=== PATIENT | female | born 1945 | race Hispanic/Latino ===

== ENCOUNTER 2017-08-07 12:30 | Inpatient (IN) | payer OTHER, MEDICARE ==
[~2017-08-07] VITALS: Ht 162.6 cm; Wt 58.2 kg
[2017-08-07 13:05] LABS: BASOPHILS % (AUTO) 0.3 % (0.0-5.0); EOSINOPHILS % (AUTO) 1.1 % (0.0-8.0); HEMATOCRIT 35.4 % (36-48); MEAN CORPUSCULAR HEMOGLOBIN 30.6 pg (27.0-33.0); MEAN CORPUSCULAR HGB CONC 34.1 g/dL (32.0-36.0); MEAN CORPUSCULAR VOLUME 89.5 fL (79-99); MONOCYTES % (AUTO) 5.4 % (3.0-13.0); NEUTROPHILS % (AUTO) 84.2 % (40.0-77.0); PLATELET COUNT (AUTO) 232 K/uL (130-400); RED BLOOD CELL COUNT(AUTO) 3.96 MIL/uL (4.00-5.50); RED CELL DISTRIBUTION WIDTH 12.7 % (11.0-15.5); WHITE BLOOD COUNT (AUTO) 7.1 K/uL (4.8-10.8)
[2017-08-07 13:15] LABS: CREATININE 0.6 mg/dL (0.5-1.5); POTASSIUM 3.4 mmol/L (3.5-5.1)
[2017-08-07 13:30] LABS: INR 0.97 (0.85-1.15); PARTIAL THROMBOPLASTIN TIME 32.6 SEC (26.3-35.5); PROTHROMBIN TIME 10.2 SEC (9.6-11.6)
[2017-08-07 13:33] LABS: ALBUMIN 3.6 g/dL (3.5-5.0); BILIRUBIN,DIRECT 0.2 mg/dL (0.0-0.3); BILIRUBIN,TOTAL 0.8 mg/dL (0.2-1.0); TOTAL PROTEIN, SERUM 7.3 g/dL (6.0-8.3)
[2017-08-07 13:44] LABS: B-TYPE NATRIURETIC PEPTIDE 51 pg/mL (0-100)
[2017-08-07] MEDS ORDERED: DEXAMETHASONE SOD PHOSPHATE 10MG/ML 1ML VIAL ONE (16:02)
[2017-08-07] MEDS ORDERED: CEFTRIAXONE SODIUM 2 GM VIAL ONE (16:02)
[2017-08-07] MEDS ORDERED: SODIUM CHLORIDE 0.9% 1000ML 1,000 ML IV ONE (16:02)
[2017-08-07] MEDS ORDERED: IPRATROPIUM/ALBUTEROL SULFATE 3 ML SOLUTION IH ONE (16:21)
[2017-08-07] MEDS ORDERED: IOPAMIDOL-370 100 ML VIAL IV ONE (17:00)
[2017-08-07] MEDS ORDERED: VANCOMYCIN 1GM+NS 250ML 250 ML IV ONE (18:09)
[2017-08-07] MEDS ORDERED: GUAIFENESIN-DM 200/20 MG 10 ML PO PRN (18:30)
[2017-08-07] MEDS ORDERED: LACTULOSE 20 GM/30 ML UDCUP PO PRN (18:30)
[2017-08-07] MEDS ORDERED: MEROPENEM 500MG+NS 50ML 50 ML IV SCH (18:30)
[2017-08-07] MEDS ORDERED: VANCOMYCIN PROTOCOL PER PHARMACY IV PRN (18:30)
[2017-08-07] MEDS ORDERED: MAG HYDROX/AL HYDROX/SIMETH ES 30 ML SUSP UDCUP PO PRN (18:30)
[2017-08-07] MEDS ORDERED: ACETAMINOPHEN 325 MG TAB PO PRN ×2 (18:30)
[2017-08-07] MEDS ORDERED: ONDANSETRON HCL 4 MG/2 ML VIAL IV PRN (18:30)
[2017-08-07] MEDS ORDERED: MEROPENEM 500 MG VIAL ONE (18:48)
[2017-08-07] MEDS ORDERED: MORPHINE SULFATE 2 MG/ML 1ML SYG IVP PRN ×2 (21:15)
[2017-08-07] MEDS ORDERED: POTASSIUM CHLORIDE 10% ELIXIR 20 MEQ/15 ML UDCUP PO PRN (21:15)
[2017-08-07] MEDS ORDERED: LIDOCAINE HCL-MPF 1% 2ML VIAL IVP PRN (21:15)
[2017-08-07] MEDS ORDERED: POTASSIUM CHLORIDE 20MEQ/100ML 100 ML IV PRN (21:15)
[2017-08-07] MEDS ORDERED: CLONIDINE HCL 0.1 MG TABLET PO PRN (21:15)
[2017-08-07] MEDS ORDERED: POTASSIUM CHLORIDE 20 MEQ ERTAB PO PRN (21:15)
[2017-08-07] MEDS ORDERED: HYDRALAZINE HCL 20 MG/ML VIAL IV PRN (21:15)
[2017-08-07] MEDS ORDERED: FAMOTIDINE/PF 20 MG/2 ML VIAL IV ONE (21:28)
[2017-08-07] MEDS ORDERED: POTASSIUM CHLORIDE 20 MEQ ERTAB PO ONE (23:19)
[2017-08-08] VITALS: BP 130/67
[2017-08-08] MEDS ORDERED: MEROPENEM 500 MG VIAL ONE (03:30)
[2017-08-08 03:43] LABS: HEMATOCRIT 32.8 % (36-48); LYMPHOCYTES % (AUTO) 12.1 % (21.0-51.0); MEAN CORPUSCULAR HEMOGLOBIN 30.3 pg (27.0-33.0); MEAN CORPUSCULAR VOLUME 89.2 fL (79-99); MONOCYTES % (AUTO) 1.9 % (3.0-13.0); PLATELET COUNT (AUTO) 212 K/uL (130-400); RED BLOOD CELL COUNT(AUTO) 3.68 MIL/uL (4.00-5.50); WHITE BLOOD COUNT (AUTO) 4.2 K/uL (4.8-10.8)
[2017-08-08 04:00] VITALS: BP 131/72
[2017-08-08 04:07] LABS: CARBON DIOXIDE 29 mmol/L (21-32); CHLORIDE 104 mmol/L (101-111); CREATINE KINASE MB < 0.5 ng/mL (0.5-3.6); CREATINE KINASE, TOTAL 60 U/L (21-232); CREATININE 0.7 mg/dL (0.5-1.5); GLOMERULAR FILTR. RATE CALC 88 mL/min (>60); GLUCOSE,RANDOM 185 mg/dL (70-105); MYOGLOBIN 26 ng/mL (10-92); SODIUM SERUM 138 mmol/L (136-145); TROPONIN I < 0.04 ng/mL (0.00-0.06); UREA NITROGEN, BLOOD 14 mg/dL (7-18)
[2017-08-08] MEDS: IPRATROPIUM/ALBUTEROL SULFATE 3 ML SOLUTION IH SCH ×4 (06:00→23:24)
[2017-08-08] MEDS ORDERED: IPRATROPIUM/ALBUTEROL SULFATE 3 ML SOLUTION IH ONE (06:42)
[2017-08-08 08:00] VITALS: BP 124/71
[2017-08-08 11:58] VITALS: BP 119/62
[2017-08-08] MEDS ORDERED: COMPOUND IV REFRIGERATED 1 EACH IVSOLN MISC PRN (12:15)
[2017-08-08] MEDS: VANCOMYCIN 0.75 GM in N.S. 250 ML IV SCH (12:38)
[2017-08-08] MEDS: MEROPENEM 500 MG VIAL IVP SCH ×2 (12:38→20:35)
[2017-08-08] MEDS: ASPIRIN 325MG EC TAB 325 MG TABLET.DR PO SCH (12:39)
[2017-08-08 16:00] VITALS: BP 128/59
[2017-08-08 20:00] VITALS: BP 127/65
[2017-08-08] MEDS: FAMOTIDINE/PF 20 MG/2 ML VIAL IV SCH (20:36)
[2017-08-09] VITALS: BP 110/53
[2017-08-09] MEDS: VANCOMYCIN 0.75 GM in N.S. 250 ML IV SCH (00:35)
[2017-08-09 04:00] VITALS: BP 128/72
[2017-08-09] MEDS: MEROPENEM 500 MG VIAL IVP SCH ×4 (04:57→21:46)
[2017-08-09 06:09] LABS: HEMATOCRIT 32.6 % (36-48); MEAN CORPUSCULAR HEMOGLOBIN 31.2 pg (27.0-33.0); MEAN CORPUSCULAR HGB CONC 34.7 g/dL (32.0-36.0); MEAN CORPUSCULAR VOLUME 89.7 fL (79-99); PLATELET COUNT (AUTO) 260 K/uL (130-400); RED BLOOD CELL COUNT(AUTO) 3.63 MIL/uL (4.00-5.50); RED CELL DISTRIBUTION WIDTH 13.2 % (11.0-15.5); WHITE BLOOD COUNT (AUTO) 6.3 K/uL (4.8-10.8)
[2017-08-09 06:19] LABS: CREATININE 0.7 mg/dL (0.5-1.5); POTASSIUM 3.5 mmol/L (3.5-5.1)
[2017-08-09] MEDS: IPRATROPIUM/ALBUTEROL SULFATE 3 ML SOLUTION IH SCH ×4 (06:27→23:37)
[2017-08-09 07:08] LABS: BASOPHILS % (MANUAL) 1 % (0-2); EOSINOPHILS % (MANUAL) 1 % (1-6); LYMPHOCYTES % (MANUAL) 22 % (22-44); MAN.DIFF COMMENT-IMPRESSION MANUAL DIFFERENTIAL; MONOCYTES % (MANUAL) 4 % (2-9); PLATELET MORPHOLOGY COMMENT ADEQUATE; SEGMENTED NEUTROPHILS % 72 % (40-70)
[2017-08-09 08:00] VITALS: BP 126/77
[2017-08-09] MEDS: ASPIRIN 325MG EC TAB 325 MG TABLET.DR PO SCH (08:59)
[2017-08-09] MEDS: FAMOTIDINE/PF 20 MG/2 ML VIAL IV SCH ×2 (08:59→21:46)
[2017-08-09] MEDS ORDERED: MAGNESIUM 2GM PREMIX 50ML 50 ML IV SCH (10:00)
[2017-08-09] MEDS ORDERED: VANCOMYCIN 1.5 GM in SODIUM CHLORIDE 0.9% 250 ML IV SCH (11:57)
[2017-08-09 12:00] VITALS: BP 121/65
[2017-08-09 16:00] VITALS: BP 123/67
[2017-08-09 20:00] VITALS: BP 107/60
[2017-08-09] MEDS: VANCOMYCIN 500MG+NS 100ML 100 ML IV SCH (21:47)
[2017-08-10] VITALS: BP 104/60
[2017-08-10 04:00] VITALS: BP 114/70
[2017-08-10] MEDS: MEROPENEM 500 MG VIAL IVP SCH ×3 (05:55→21:24)
[2017-08-10] MEDS: VANCOMYCIN 500MG+NS 100ML 100 ML IV SCH (05:56)
[2017-08-10 06:27] LABS: BASOPHILS % (AUTO) 0.8 % (0.0-5.0); EOSINOPHILS % (AUTO) 2.8 % (0.0-8.0); HEMATOCRIT 35.3 % (36-48); LYMPHOCYTES % (AUTO) 20.6 % (21.0-51.0); MEAN CORPUSCULAR HEMOGLOBIN 30.3 pg (27.0-33.0); MEAN CORPUSCULAR HGB CONC 33.8 g/dL (32.0-36.0); MEAN CORPUSCULAR VOLUME 89.8 fL (79-99); MONOCYTES % (AUTO) 7.3 % (3.0-13.0); NEUTROPHILS % (AUTO) 68.5 % (40.0-77.0); PLATELET COUNT (AUTO) 274 K/uL (130-400); RED BLOOD CELL COUNT(AUTO) 3.93 MIL/uL (4.00-5.50); RED CELL DISTRIBUTION WIDTH 13.2 % (11.0-15.5); WHITE BLOOD COUNT (AUTO) 5.4 K/uL (4.8-10.8)
[2017-08-10] MEDS: IPRATROPIUM/ALBUTEROL SULFATE 3 ML SOLUTION IH SCH ×4 (06:31→23:14)
[2017-08-10 06:36] LABS: CREATININE 0.7 mg/dL (0.5-1.5); MAGNESIUM 2.3 mg/dL (1.80-2.40); POTASSIUM 4.6 mmol/L (3.5-5.1)
[2017-08-10 08:10] VITALS: BP 129/70
[2017-08-10 11:30] VITALS: BP 132/67
[2017-08-10] MEDS: ASPIRIN 325MG EC TAB 325 MG TABLET.DR PO SCH (11:48)
[2017-08-10] MEDS: FAMOTIDINE/PF 20 MG/2 ML VIAL IV SCH ×2 (11:48→21:24)
[2017-08-10] MEDS: ENOXAPARIN SODIUM 40 MG/0.4 ML SYRINGE SQ SCH (11:50)
[2017-08-10] MEDS ORDERED: COMPOUND IV REFRIGERATED 1 EACH IVSOLN MISC PRN (15:30)
[2017-08-10 16:00] VITALS: BP 112/66
[2017-08-10 19:54] VITALS: BP 106/60
[2017-08-10] MEDS: VANCOMYCIN 750MG + NS 250 ML IV SCH ×2 (21:24)
[2017-08-11 00:50] VITALS: BP 111/58
[2017-08-11 04:13] VITALS: BP 107/64
[2017-08-11] MEDS: VANCOMYCIN 750MG + NS 250 ML IV SCH ×2 (06:11)
[2017-08-11] MEDS: MEROPENEM 500 MG VIAL IVP SCH (06:11)
[2017-08-11] MEDS: IPRATROPIUM/ALBUTEROL SULFATE 3 ML SOLUTION IH SCH ×2 (06:26→12:37)
[2017-08-11 08:10] VITALS: BP 127/74
[2017-08-11] MEDS: ASPIRIN 325MG EC TAB 325 MG TABLET.DR PO SCH (10:06)
[2017-08-11] MEDS: FAMOTIDINE/PF 20 MG/2 ML VIAL IV SCH (10:06)
[2017-08-11] MEDS: ENOXAPARIN SODIUM 40 MG/0.4 ML SYRINGE SQ SCH (10:07)
[2017-08-11 12:51] VITALS: BP 120/64
== END 2017-08-11 12:55 | disposition home or self-care (01) | DRG 194 ==
LOC: EDH 12:30 → EDHIP 18:17 → 3AH 22:13
PROVIDERS: ADMIT Family Medicine; ATTEND Family Medicine
DX: J18.9 Pneumonia, unspecified organism (principal); R78.81 Bacteremia; B96.89 Other specified bacterial agents as the cause of diseases classified elsewhere; J84.10 Pulmonary fibrosis, unspecified; J98.11 Atelectasis; I10 Essential (primary) hypertension; Z77.22 Contact with and (suspected) exposure to environmental tobacco smoke (acute) (chronic); Z78.9 Other specified health status; Z87.01 Personal history of pneumonia (recurrent)
CPT/HCPCS: 36415; 71045; 71046; 71275; 80048; 80076; 80202; 82550; 82553; 83605; 83735; 83874; 83880; 84484; 84702; 85025; 85610; 85730; 87040; 87071; 87116; 87186; 87205; 87206; 87804; 93005; 94640; 94664; A4218; J0696; J1100; J1650; J2185; J3370; J3475; J3490; J7030; Q9967

== ENCOUNTER → 2018-10-27 | Outpatient (CLI) | payer OTHER, MEDICARE | END | disposition home or self-care (01) | LOC: RAH 13:07 | PROVIDERS: ATTEND Family Medicine | DX: J47.9 Bronchiectasis, uncomplicated (principal); A31.0 Pulmonary mycobacterial infection | CPT/HCPCS: 71250 ==

== ENCOUNTER 2019-02-07 21:53 | Emergency (ER) | payer OTHER, MEDICARE ==
[~2019-02-07 21:53] MED LIST: CLAR500T PO; ETHA400T8 PO; RIFA300C4 PO
[2019-02-07 22:39] LABS: BASOPHILS % (AUTO) 0.7 % (0.0-5.0); EOSINOPHILS % (AUTO) 2.6 % (0.0-8.0); HEMATOCRIT 36.3 % (36-48); LYMPHOCYTES % (AUTO) 25.1 % (21.0-51.0); MEAN CORPUSCULAR HEMOGLOBIN 30.5 pg (27.0-33.0); MEAN CORPUSCULAR HGB CONC 33.6 g/dL (32.0-36.0); MEAN CORPUSCULAR VOLUME 90.9 fL (79-99); MONOCYTES % (AUTO) 8.3 % (3.0-13.0); NEUTROPHILS % (AUTO) 63.3 % (40.0-77.0); NUCLEATED RED BLOOD CELLS 0.1 % (0.0-0.19); PLATELET COUNT (AUTO) 222 K/uL (130-400); RED BLOOD CELL COUNT(AUTO) 3.99 MIL/uL (4.00-5.50); RED CELL DISTRIBUTION WIDTH 13.4 % (11.0-15.5); WHITE BLOOD COUNT (AUTO) 4.8 K/uL (4.8-10.8)
[2019-02-07 22:53] LABS: CREATININE 0.6 mg/dL (0.5-1.5); POTASSIUM 3.9 mmol/L (3.5-5.1)
[2019-02-07 22:57] LABS: ALBUMIN 3.8 g/dL (3.5-5.0); BILIRUBIN,DIRECT 0.1 mg/dL (0.0-0.3); BILIRUBIN,TOTAL 0.2 mg/dL (0.2-1.0); TOTAL PROTEIN, SERUM 8.2 g/dL (6.0-8.3)
== END 2019-02-08 00:46 | disposition home or self-care (01) ==
LOC: EDH 21:53
DX: R09.1 Pleurisy (principal); R05 Cough
CPT/HCPCS: 36415; 71046; 80048; 80076; 82550; 84484; 85025; 87804; 93005

== ENCOUNTER 2019-11-20 17:14 | Emergency (ER) | payer OTHER, MEDICARE ==
[~2019-11-20 17:14] MED LIST changes: +CLAR-44 PO; -CLAR500T PO
[2019-11-20 17:55] LABS: BASOPHILS % (AUTO) 0.4 % (0.0-5.0); EOSINOPHILS % (AUTO) 1.5 % (0.0-8.0); HEMATOCRIT 33.1 % (36-48); LYMPHOCYTES % (AUTO) 18.2 % (21.0-51.0); MEAN CORPUSCULAR HGB CONC 32.6 g/dL (32.0-36.0); MEAN CORPUSCULAR VOLUME 88.7 fL (79-99); MONOCYTES % (AUTO) 6.7 % (3.0-13.0); NEUTROPHILS % (AUTO) 72.8 % (40.0-77.0); PLATELET COUNT (AUTO) 275 K/uL (130-400); RED BLOOD CELL COUNT(AUTO) 3.73 MIL/uL (4.00-5.50); RED CELL DISTRIBUTION WIDTH 12.4 % (11.0-15.5); WHITE BLOOD COUNT (AUTO) 5.4 K/uL (4.8-10.8)
[2019-11-20 18:06] LABS: CREATININE 0.7 mg/dL (0.5-1.5); POTASSIUM 3.6 mmol/L (3.5-5.1)
[2019-11-20 18:08] LABS: INR 0.92 (0.85-1.15); PARTIAL THROMBOPLASTIN TIME 33.6 SEC (26.3-35.5)
[2019-11-20 18:10] LABS: ALBUMIN 3.8 g/dL (3.5-5.0); BILIRUBIN,TOTAL 0.3 mg/dL (0.2-1.0); TOTAL PROTEIN, SERUM 8.2 g/dL (6.0-8.3)
[2019-11-20] MEDS ORDERED: CEFTRIAXONE SODIUM 1 GM ONE (20:06)
== END 2019-11-20 20:29 | disposition home or self-care (01) ==
LOC: EDH 17:14
DX: J02.9 Acute pharyngitis, unspecified (principal); R04.2 Hemoptysis
CPT/HCPCS: 36415; 71046; 80053; 85025; 85610; 85730; 96374; 99284; J0696

== ENCOUNTER 2022-12-27 15:41 | Emergency (ER) | payer OTHER, MEDICARE ==
[~2022-12-27] VITALS: Ht 160 cm; Wt 39.0 kg
[~2022-12-27 15:41] MED LIST changes: +ALBUHFA IH; +DOXY100C5 PO; +ETHA400T33 PO; -ETHA400T8 PO; +OSEL75CA17 PO; +RIFA300C34 PO; -RIFA300C4 PO
[2022-12-27 16:22] LABS: BASOPHILS % (AUTO) 0.3 % (0.0-5.0); EOSINOPHILS % (AUTO) 0.3 % (0.0-8.0); LYMPHOCYTES % (AUTO) 6.2 % (21.0-51.0); MEAN CORPUSCULAR HEMOGLOBIN 29.5 pg (27.0-33.0); MEAN CORPUSCULAR HGB CONC 33.9 g/dL (32.0-36.0); MEAN CORPUSCULAR VOLUME 87.1 fL (79-99); MONOCYTES % (AUTO) 4.9 % (3.0-13.0); NEUTROPHILS % (AUTO) 87.9 % (40.0-77.0); PLATELET COUNT (AUTO) 60 K/uL (130-400); RED BLOOD CELL COUNT(AUTO) 3.56 MIL/uL (4.00-5.50); RED CELL DISTRIBUTION WIDTH 12.8 % (11.0-15.5)
[2022-12-27 16:36] LABS: CREATININE 0.5 mg/dL (0.5-1.5); POTASSIUM 3.8 mmol/L (3.5-5.1)
[2022-12-27 16:41] LABS: TOTAL PROTEIN, SERUM 8.5 g/dL (6.0-8.3)
[2022-12-27 16:45] LABS: B-TYPE NATRIURETIC PEPTIDE 127 pg/mL (0-100)
[2022-12-27 16:49] LABS: PLATELET MORPHOLOGY COMMENT DECREASED
[2022-12-27 17:01] LABS: APPEARANCE,URINE CLEAR (CLEAR); BILIRUBIN,URINE NEGATIVE (NEGATIVE); GLUCOSE, URINE (UA) NEGATIVE (NEGATIVE); KETONES,URINE 10 mg/dL (NEGATIVE); LEUKOCYTE ESTERASE ,URINE NEGATIVE Leu/uL (NEGATIVE); NITRATE,URINE NEGATIVE (NEGATIVE); OCCULT BLOOD,URINE NEGATIVE (NEGATIVE); PH,URINE 6.5 (5.0-8.0); PROTEIN,URINE NEGATIVE (NEGATIVE); UROBILINOGEN,URINE 0.2 mg/dL (0.2-1.0)
[2022-12-27 17:03] LABS: COLOR,URINE LIGHT-YELLOW (YELLOW)
[2022-12-27 17:04] LABS: RBC,URINE 0-1 /HPF (0-1); SQUAMOUS EPITHELIAL CELL,UR RARE /HPF (0-2); WBC,URINE 0-1 /HPF (0-1)
[2022-12-27] MEDS ORDERED: 0.9%NACL 1000ML 1,000 ML IV ONE (18:30)
[2022-12-27] MEDS ORDERED: OSEL75 PO (18:45)
[2022-12-27 19:50] VITALS: BP 117/56
== END 2022-12-27 20:57 | disposition home or self-care (01) ==
LOC: EDH 15:41
DX: R53.83 Other fatigue (principal); J11.1 Influenza due to unidentified influenza virus with other respiratory manifestations; D69.6 Thrombocytopenia, unspecified; E87.1 Hypo-osmolality and hyponatremia; Z20.822 Contact with and (suspected) exposure to COVID-19; Z79.899 Other long term (current) drug therapy
CPT/HCPCS: 99285; 71045; 87635; 83735; 84484; 80053; 83880; 85025; 87804 ×2; 83605; 81001; 36415; 93005; C9803

== ENCOUNTER 2023-02-14 13:49 | Emergency (ER) | payer OTHER, MEDICARE ==
[~2023-02-14] VITALS: Ht 162.6 cm; Wt 36.7 kg
[~2023-02-14 13:49] MED LIST changes: +OSEL75 PO
[2023-02-14 14:29] LABS: BASOPHILS # (AUTO) 0.02 K/uL (0.00-0.20); BASOPHILS % (AUTO) 0.3 % (0.0-5.0); EOSINOPHILS # (AUTO) 0.01 K/uL (0.00-0.70); EOSINOPHILS % (AUTO) 0.1 % (0.0-8.0); HEMATOCRIT 32.6 % (36-48); IMMATURE GRANULOCYTE ABSOLUTE 0.02 K/uL (0-1); LYMPHOCYTES # (AUTO) 0.3 K/uL (1.0-4.8); LYMPHOCYTES % (AUTO) 4.2 % (21.0-51.0); MEAN CORPUSCULAR HEMOGLOBIN 28.7 pg (27.0-33.0); MEAN CORPUSCULAR HGB CONC 32.8 g/dL (32.0-36.0); MEAN CORPUSCULAR VOLUME 87.4 fL (79-99); MONOCYTES # (AUTO) 0.4 K/uL (0.1-1.0); MONOCYTES % (AUTO) 5.8 % (3.0-13.0); NEUTROPHILS # (AUTO) 6.6 K/uL (1.8-7.7); NEUTROPHILS % (AUTO) 89.3 % (40.0-77.0); PLATELET COUNT (AUTO) 116 K/uL (130-400); RED BLOOD CELL COUNT(AUTO) 3.73 MIL/uL (4.00-5.50); RED CELL DISTRIBUTION WIDTH 12.9 % (11.0-15.5); WHITE BLOOD COUNT (AUTO) 7.4 K/uL (4.8-10.8)
[2023-02-14 14:43] LABS: ALBUMIN 2.7 g/dL (3.5-5.0); BILIRUBIN,TOTAL 0.5 mg/dL (0.2-1.0); CREATININE 0.6 mg/dL (0.5-1.5); TOTAL PROTEIN, SERUM 8.4 g/dL (6.0-8.3)
[2023-02-14 14:54] LABS: B-TYPE NATRIURETIC PEPTIDE 152 pg/mL (0-100)
[2023-02-14 15:02] LABS: POTASSIUM 3.6 mmol/L (3.5-5.1)
[2023-02-14] MEDS ORDERED: IPRATROPIUM/ALBUTEROL SULFATE 3 ML SOLUTION IH ONE (15:30)
[2023-02-14 16:11] LABS: ABG BASE EXCESS 2.2 mmol/L (-2.0-3.0); ABG HCO3 26.3 mmol/L (21.0-28.0); ABG OXYGEN SATURATION 94.5 % (95.0-99.0); ABG PCO2 39 mmHg (32-45); ABG PH 7.443 (7.35-7.450); DEVICE COMMENT LB; PO2, ARTERIAL BG 69.1 mmHg (83.0-108.0); VENT MODE, BG RA (ROOM AIR)
[2023-02-14 16:13] VITALS: PULSE 105; RESP 20
[2023-02-14] MEDS ORDERED: AUD IH (16:31)
[2023-02-14] MEDS ORDERED: IPRA0.2S54 IH (16:31)
[2023-02-14 17:12] VITALS: BP 124/74; PULSE 87; RESP 20; O2SAT 96
== END 2023-02-14 17:24 | disposition home or self-care (01) ==
LOC: EDH 13:49
DX: R06.00 Dyspnea, unspecified (principal); J44.9 Chronic obstructive pulmonary disease, unspecified; Z79.899 Other long term (current) drug therapy
CPT/HCPCS: 36415; 36600; 71045; 80053; 82803; 83880; 84484; 85025; 93005; 94640

== ENCOUNTER 2023-02-20 13:32 | Observation (INO) | payer OTHER, MEDICARE ==
[~2023-02-20] VITALS: Ht 162.6 cm; Wt 44.5 kg
[~2023-02-20 13:32] MED LIST changes: +AUD IH; +IPRA0.2S54 IH
[2023-02-20] MEDS ORDERED: ENOXAPARIN SODIUM 40 MG/0.4 ML SYRINGE SQ ONE (14:30)
[2023-02-20] MEDS ORDERED: LACTATED RINGERS 1000ML 1,000 ML IV ONE (14:30)
[2023-02-20] MEDS ORDERED: ASPIRIN 325MG TAB PO ONE (14:30)
[2023-02-20] MEDS ORDERED: GUAIFENESIN 600 MG TABLET.ER PO ONE (14:30)
[2023-02-20] MEDS ORDERED: ALBUTEROL 0.083% 2.5 MG/3 ML INH IH ONE (14:30)
[2023-02-20 15:06] LABS: BASOPHILS # (AUTO) 0.02 K/uL (0.00-0.20); BASOPHILS % (AUTO) 0.2 % (0.0-5.0); HEMATOCRIT 32.6 % (36-48); IMMATURE GRANULOCYTE ABSOLUTE 0.04 K/uL (0-1); LYMPHOCYTES # (AUTO) 0.4 K/uL (1.0-4.8); LYMPHOCYTES % (AUTO) 4.4 % (21.0-51.0); MEAN CORPUSCULAR HEMOGLOBIN 29.1 pg (27.0-33.0); MEAN CORPUSCULAR HGB CONC 32.8 g/dL (32.0-36.0); MEAN CORPUSCULAR VOLUME 88.6 fL (79-99); MONOCYTES # (AUTO) 0.4 K/uL (0.1-1.0); MONOCYTES % (AUTO) 4.8 % (3.0-13.0); NEUTROPHILS # (AUTO) 7.5 K/uL (1.8-7.7); NEUTROPHILS % (AUTO) 90.1 % (40.0-77.0); PLATELET COUNT (AUTO) 161 K/uL (130-400); RED BLOOD CELL COUNT(AUTO) 3.68 MIL/uL (4.00-5.50); RED CELL DISTRIBUTION WIDTH 12.9 % (11.0-15.5); WHITE BLOOD COUNT (AUTO) 8.3 K/uL (4.8-10.8)
[2023-02-20 15:11] VITALS: PULSE 72; RESP 18
[2023-02-20 15:21] LABS: CREATININE 0.6 mg/dL (0.5-1.5); POTASSIUM 3.4 mmol/L (3.5-5.1)
[2023-02-20] MEDS ORDERED: IOHEXOL-350 75 ML VIAL IV ONE (16:04)
[2023-02-20] MEDS ORDERED: SOLU-MEDROL 125MG VIAL IVP ONE (17:30)
[2023-02-20] MEDS: 0.9%NACL 1000ML 1,000 ML IV SCH (18:47)
[2023-02-20] MEDS ORDERED: ALBUTEROL 0.083% 2.5 MG/3 ML INH IH PRN (19:00)
[2023-02-20] MEDS ORDERED: ACETAMINOPHEN 650 MG SUPPOSITORY RC PRN (19:00)
[2023-02-20] MEDS ORDERED: GUAIFENESIN-DM 200/20 MG 10 ML PO PRN (19:00)
[2023-02-20] MEDS ORDERED: HYDRALAZINE 20MG/ML VIAL IV PRN ×2 (19:00)
[2023-02-20] MEDS ORDERED: ACETAMINOPHEN 325 MG TAB PO PRN ×2 (19:00)
[2023-02-20] MEDS ORDERED: NITROGLYCERIN 0.4 MG SL TAB SL PRN (19:00)
[2023-02-20] MEDS ORDERED: CLONIDINE HCL 0.1 MG TABLET PO PRN (19:00)
[2023-02-20] MEDS ORDERED: ONDANSETRON 4MG INJ IVP PRN (19:00)
[2023-02-20] MEDS ORDERED: TEMAZEPAM 15 MG CAPSULE PO PRN (19:00)
[2023-02-20] MEDS ORDERED: DiphenhydrAMINE HCL 50 MG/ML VIAL IV PRN (19:00)
[2023-02-20] MEDS ORDERED: ZOLPIDEM TARTRATE 5 MG TAB PO PRN (19:00)
[2023-02-20] MEDS ORDERED: LABETALOL 20MG SYG IV PRN (19:00)
[2023-02-20] MEDS ORDERED: MAG/ALUM/SIMETH 30 ML UDCUP PO PRN (19:00)
[2023-02-20] MEDS ORDERED: LACTULOSE 20 GM/30 ML UDCUP PO PRN (19:00)
[2023-02-20] MEDS ORDERED: ONDANSETRON 4MG INJ IV PRN (19:00)
[2023-02-20] MEDS ORDERED: AZITHROMYCIN 500MG+NS 250ML IV SCH (19:00)
[2023-02-20] MEDS ORDERED: DOCUSATE SODIUM 100 MG CAP PO PRN (19:00)
[2023-02-20 19:16] LABS: SARS-CoV-2, RNA, NAAT NEGATIVE SARS CoV-2 (NEGATIVE)
[2023-02-20 19:21] LABS: INFLUENZA TYPE A Negative For Type A (NEGATIVE); INFLUENZA TYPE B Negative For Type B (NEGATIVE)
[2023-02-20 19:51] LABS: ABG BASE EXCESS 4.5 mmol/L (-2.0-3.0); ABG HCO3 28.9 mmol/L (21.0-28.0); ABG OXYGEN SATURATION 94.7 % (95.0-99.0); ABG PCO2 42 mmHg (32-45); ABG PH 7.454 (7.35-7.450); PO2, ARTERIAL BG 69.5 mmHg (83.0-108.0); VENT MODE, BG ROOMAIR (ROOM AIR)
[2023-02-20 19:55] VITALS: PULSE 89; RESP 18; O2SAT 97
[2023-02-20] MEDS: AZITHROMYCIN 500MG+NS 250ML IV SCH (20:58)
[2023-02-20] MEDS: FAMOTIDINE 20MG VIAL IV SCH (20:58)
[2023-02-20] MEDS: INSULIN HUMULIN R 100 UNIT/ML 3ML SQ SCH (20:59)
[2023-02-20] MEDS ORDERED: FAMOTIDINE 20MG VIAL IV SCH (21:00)
[2023-02-20] MEDS ORDERED: HEPARIN 5,000 UNIT VIAL SQ SCH (21:00)
[2023-02-20] MEDS: IPRATROPIUM 0.5 MG/2.5 ML INH IH SCH ×2 (22:00→23:59)
[2023-02-20 22:15] VITALS: O2SAT 95
[2023-02-20 22:32] VITALS: BP 167/64; PULSE 72; RESP 20
[2023-02-20 23:46] VITALS: PULSE 88; RESP 18; O2SAT 98
[2023-02-20] MEDS: IPRATROPIUM/ALBUTEROL SULFATE 3 ML SOLUTION IH SCH (23:46)
[2023-02-21] VITALS (15 sets, daily range): BP systolic 103–121; BP diastolic 47–67; PULSE 65–112; RESP 16–20; O2SAT 96–100
[2023-02-21] MEDS: SOLU-MEDROL 125MG VIAL IVP SCH ×2 (00:37→09:35)
[2023-02-21 04:43] LABS: HEMATOCRIT 30.7 % (36-48); IMMATURE GRANULOCYTE ABSOLUTE 0.02 K/uL (0-1); LYMPHOCYTES # (AUTO) 0.2 K/uL (1.0-4.8); LYMPHOCYTES % (AUTO) 5.2 % (21.0-51.0); MEAN CORPUSCULAR HEMOGLOBIN 28.6 pg (27.0-33.0); MEAN CORPUSCULAR HGB CONC 32.2 g/dL (32.0-36.0); MEAN CORPUSCULAR VOLUME 88.7 fL (79-99); MONOCYTES % (AUTO) 0.3 % (3.0-13.0); NEUTROPHILS # (AUTO) 3.3 K/uL (1.8-7.7); NEUTROPHILS % (AUTO) 93.9 % (40.0-77.0); PLATELET COUNT (AUTO) 150 K/uL (130-400); RED BLOOD CELL COUNT(AUTO) 3.46 MIL/uL (4.00-5.50); RED CELL DISTRIBUTION WIDTH 13.1 % (11.0-15.5); WHITE BLOOD COUNT (AUTO) 3.5 K/uL (4.8-10.8)
[2023-02-21 04:51] LABS: HEMOGLOBIN A1C 5.8 % (4.0-6.0)
[2023-02-21 05:32] LABS: ALBUMIN 2.3 g/dL (3.5-5.0); BILIRUBIN,TOTAL 0.2 mg/dL (0.2-1.0); CREATININE 0.4 mg/dL (0.5-1.5); MAGNESIUM 1.7 mg/dL (1.80-2.40); PHOSPHORUS 3.7 mg/dL (2.5-4.9); POTASSIUM 3.7 mmol/L (3.5-5.1); THYROID STIMULATING HORMONE 0.48 uIU/mL (0.36-3.74); TOTAL PROTEIN, SERUM 7.5 g/dL (6.0-8.3)
[2023-02-21] MEDS: IPRATROPIUM 0.5 MG/2.5 ML INH IH SCH ×2 (06:30→10:00)
[2023-02-21] MEDS: 0.9%NACL 1000ML 1,000 ML IV SCH ×2 (06:39→16:34)
[2023-02-21] MEDS: IPRATROPIUM/ALBUTEROL SULFATE 3 ML SOLUTION IH SCH ×4 (07:22→23:34)
[2023-02-21] MEDS: INSULIN HUMULIN R 100 UNIT/ML 3ML SQ SCH ×4 (07:30→20:53)
[2023-02-21] MEDS ORDERED: ENOXAPARIN SODIUM 40 MG/0.4 ML SYRINGE SQ SCH (09:00)
[2023-02-21] MEDS: FAMOTIDINE 20MG VIAL IV SCH (09:35)
[2023-02-21] MEDS: AZITHROMYCIN 500MG+NS 250ML IV SCH (09:36)
[2023-02-21 13:37] LABS: APPEARANCE,URINE CLEAR (CLEAR); BILIRUBIN,URINE NEGATIVE (NEGATIVE); COLOR,URINE YELLOW (YELLOW); GLUCOSE, URINE (UA) >=1000 mg/dL (NEGATIVE); KETONES,URINE 5 mg/dL (NEGATIVE); LEUKOCYTE ESTERASE ,URINE NEGATIVE Leu/uL (NEGATIVE); NITRATE,URINE NEGATIVE (NEGATIVE); OCCULT BLOOD,URINE NEGATIVE (NEGATIVE); PROTEIN,URINE 20 mg/dL (NEGATIVE); UROBILINOGEN,URINE 3 mg/dL (0.2-1.0)
[2023-02-21 13:41] LABS: ADD UA MICROSCOPIC YES
[2023-02-21 13:53] LABS: MUCUS,URINE RARE LPF (None Seen); RBC,URINE 0-1 /HPF (0-1); SQUAMOUS EPITHELIAL CELL,UR RARE /HPF (0-2); WBC,URINE 0-1 /HPF (0-1)
[2023-02-21] MEDS ORDERED: POTASSIUM CHLORIDE 20MEQ/100ML 100 ML IV PRN ×2 (16:30)
[2023-02-21] MEDS ORDERED: KCL 20 MEQ ERTAB PO PRN (16:30)
[2023-02-21] MEDS ORDERED: MAGNESIUM 2GM PREMIX 50ML 50 ML IV PRN (16:30)
[2023-02-21] MEDS ORDERED: DEXTROSE 50%-WATER 50 ML DISP.SYRIN IV PRN (16:30)
[2023-02-21] MEDS ORDERED: GLUCAGON 1MG KIT 1 MG ML IM PRN (16:30)
[2023-02-21] MEDS: SOLU-MEDROL 40MG VIAL IVP SCH (16:34)
[2023-02-21] MEDS: CEFEPIME HCL 2 GM VIAL IVPB SCH (16:35)
[2023-02-21] MEDS ORDERED: VERA120T92 PO (16:45)
[2023-02-21] MEDS ORDERED: SODIUM CHLORIDE 3% FOR INHALATION 4 ML/AMP VIAL.NEB IH ONE (18:05)
[2023-02-21] MEDS ORDERED: METRONIDAZOLE 500MG/100ML BAG 100 ML ONE (20:54)
[2023-02-21] MEDS: METRONIDAZOLE 500MG/100ML BAG 100 ML IVPB SCH (20:55)
[2023-02-22] MEDS: SOLU-MEDROL 40MG VIAL IVP SCH ×2 (00:07→08:16)
[2023-02-22 03:26] VITALS: BP 113/57; PULSE 68; RESP 17
[2023-02-22 03:43] LABS: HEMATOCRIT 27.6 % (36-48); IMMATURE GRANULOCYTE ABSOLUTE 0.05 K/uL (0-1); LYMPHOCYTES # (AUTO) 0.2 K/uL (1.0-4.8); LYMPHOCYTES % (AUTO) 1.7 % (21.0-51.0); MEAN CORPUSCULAR HEMOGLOBIN 29.1 pg (27.0-33.0); MEAN CORPUSCULAR HGB CONC 32.6 g/dL (32.0-36.0); MEAN CORPUSCULAR VOLUME 89.3 fL (79-99); MONOCYTES # (AUTO) 0.1 K/uL (0.1-1.0); MONOCYTES % (AUTO) 0.9 % (3.0-13.0); NEUTROPHILS # (AUTO) 9.7 K/uL (1.8-7.7); NEUTROPHILS % (AUTO) 96.9 % (40.0-77.0); PLATELET COUNT (AUTO) 171 K/uL (130-400); RED BLOOD CELL COUNT(AUTO) 3.09 MIL/uL (4.00-5.50); RED CELL DISTRIBUTION WIDTH 13.1 % (11.0-15.5)
[2023-02-22 03:52] LABS: CREATININE 0.4 mg/dL (0.5-1.5); POTASSIUM 3.5 mmol/L (3.5-5.1)
[2023-02-22] MEDS: CEFEPIME HCL 2 GM VIAL IVPB SCH (04:22)
[2023-02-22] MEDS: METRONIDAZOLE 500MG/100ML BAG 100 ML IVPB SCH (05:10)
[2023-02-22] MEDS: IPRATROPIUM/ALBUTEROL SULFATE 3 ML SOLUTION IH SCH ×2 (06:45→10:55)
[2023-02-22 06:47] VITALS: PULSE 74; RESP 18
[2023-02-22 07:00] VITALS: BP 131/69; PULSE 101; RESP 22
[2023-02-22] MEDS: INSULIN HUMULIN R 100 UNIT/ML 3ML SQ SCH ×2 (07:14→11:19)
[2023-02-22] MEDS: AZITHROMYCIN 500MG+NS 250ML IV SCH (08:17)
[2023-02-22] MEDS: POTASSIUM CHLORIDE 10% ELIXIR 20 MEQ/15 ML UDCUP PO PRN ×2 (08:17→10:29)
[2023-02-22 08:34] VITALS: O2SAT 100
[2023-02-22] MEDS ORDERED: PANTOPRAZOLE 40 MG TAB DR PO SCH (09:00)
[2023-02-22] MEDS ORDERED: ENOXAPARIN SODIUM 40 MG/0.4 ML SYRINGE SQ SCH (09:00)
[2023-02-22] MEDS: 0.9%NACL 1000ML 1,000 ML IV SCH (10:01)
[2023-02-22 10:55] VITALS: PULSE 75; RESP 18
[2023-02-22 11:00] VITALS: BP 124/64; PULSE 86; RESP 20
[2023-02-22] MEDS ORDERED: AMOX-426 PO (11:15)
== END 2023-02-22 13:30 | disposition home or self-care (01) ==
LOC: EDH 13:32 → EDHIP 18:18 → 2AH 21:55
PROVIDERS: ADMIT Internal Medicine Critical Care Medicine; ATTEND Internal Medicine Critical Care Medicine
DX: J96.21 Acute and chronic respiratory failure with hypoxia (principal); Z20.822 Contact with and (suspected) exposure to COVID-19; J96.22 Acute and chronic respiratory failure with hypercapnia; J44.1 Chronic obstructive pulmonary disease with (acute) exacerbation; J18.9 Pneumonia, unspecified organism; E83.42 Hypomagnesemia; E87.8 Other disorders of electrolyte and fluid balance, not elsewhere classified; D64.9 Anemia, unspecified; J98.4 Other disorders of lung; R00.0 Tachycardia, unspecified; R79.89 Other specified abnormal findings of blood chemistry; R64 Cachexia; E43 Unspecified severe protein-calorie malnutrition; Z68.1 Body mass index [BMI] 19.9 or less, adult; Z87.01 Personal history of pneumonia (recurrent); Z79.899 Other long term (current) drug therapy
CPT/HCPCS: 96372 ×3; 96365; 96366 ×3; 96375; 99285; 82550 ×2; 84484 ×2; 80048 ×2; 82803; 83880 ×2; 85025 ×3; 85378; 87804 ×2; 36415 ×3; 87635; 71045; 71270; 93970; 93005; 36600; 94640 ×9; 94664; 96376 ×2; 96361; 96367; 83036; 84443; 83735 ×2; 84100; 80053; 82948 ×6; 83605; 81001; 93306; 93356; 94760 ×2; 84145; 96368; 94668 ×2; G0378 ×37; J7120; J2930 ×3; J1650 ×3; Q9967; J3490 ×3; J2920 ×3; J0456 ×2; J0692 ×2; J1815 ×2; A4600; J3475; 87071; 87205; J1644

== ENCOUNTER 2023-03-05 17:56 | Emergency (ER) | payer OTHER, MEDICARE ==
[~2023-03-05] VITALS: Ht 162.6 cm; Wt 59.0 kg
[~2023-03-05 17:56] MED LIST changes: +AMOX-426 PO; -DOXY100C5 PO; -OSEL75 PO; -OSEL75CA17 PO; -RIFA300C34 PO; +VERA120T92 PO
[2023-03-05 18:30] VITALS: PULSE 100; RESP 16
[2023-03-05] MEDS ORDERED: SOLU-MEDROL 125MG VIAL IM ONE (18:30)
[2023-03-05] MEDS ORDERED: IPRATROPIUM/ALBUTEROL SULFATE 3 ML SOLUTION IH ONE ×2 (18:30→21:30)
[2023-03-05 19:27] LABS: BASOPHILS # (AUTO) 0.03 K/uL (0.00-0.20); BASOPHILS % (AUTO) 0.4 % (0.0-5.0); IMMATURE GRANULOCYTE ABSOLUTE 0.03 K/uL (0-1); LYMPHOCYTES # (AUTO) 0.6 K/uL (1.0-4.8); LYMPHOCYTES % (AUTO) 7.2 % (21.0-51.0); MEAN CORPUSCULAR HEMOGLOBIN 28.5 pg (27.0-33.0); MEAN CORPUSCULAR VOLUME 89.1 fL (79-99); MONOCYTES # (AUTO) 0.4 K/uL (0.1-1.0); MONOCYTES % (AUTO) 5.2 % (3.0-13.0); NEUTROPHILS # (AUTO) 6.6 K/uL (1.8-7.7); NEUTROPHILS % (AUTO) 86.8 % (40.0-77.0); PLATELET COUNT (AUTO) 303 K/uL (130-400); RED BLOOD CELL COUNT(AUTO) 3.93 MIL/uL (4.00-5.50); RED CELL DISTRIBUTION WIDTH 13.2 % (11.0-15.5); WHITE BLOOD COUNT (AUTO) 7.6 K/uL (4.8-10.8)
[2023-03-05 19:41] LABS: BILIRUBIN,TOTAL 0.4 mg/dL (0.2-1.0); CREATININE 0.5 mg/dL (0.5-1.5); POTASSIUM 3.5 mmol/L (3.5-5.1); TOTAL PROTEIN, SERUM 7.4 g/dL (6.0-8.3)
[2023-03-05 20:29] LABS: B-TYPE NATRIURETIC PEPTIDE 143 pg/mL (0-100)
[2023-03-05] MEDS ORDERED: AMOX1TAB16 PO (21:31)
[2023-03-05 22:00] VITALS: BP 132/74; PULSE 89; RESP 22; O2SAT 97
== END 2023-03-05 22:37 | disposition home or self-care (01) ==
LOC: EDH 17:56
DX: J44.1 Chronic obstructive pulmonary disease with (acute) exacerbation (principal); J18.9 Pneumonia, unspecified organism; Z79.899 Other long term (current) drug therapy
CPT/HCPCS: 99285; 71045; 84484; 80053; 83880; 85025; 36415; 96372; 93005; 94640; J2930